=== PATIENT | female | born 1980 | race Caucasian/White ===

== ENCOUNTER 2017-07-18 06:33 | Day surgery (SDC) | payer OTHER ==
[2017-07-15 19:45] VITALS: BMI 30.1
[2017-07-18] MEDS ORDERED: EPINEPHrine/PF 1 MG/1 ML (1:1,000) AMPULE ONE (07:31)
[2017-07-18] MEDS ORDERED: BUPIVACAINE HCL/PF 2.5 MG/ML - 30 ML VIAL IJ ONE (07:31)
[2017-07-18] MEDS ORDERED: LIDOCAINE HCL 1%, 10 MG/ML (20ML VIAL) ONE (07:31)
[2017-07-18] MEDS ORDERED: SODIUM BICARBONATE 8.4% 50 MEQ/50 ML VIAL ONE ×2 (07:31→07:46)
[2017-07-18] MEDS ORDERED: ROCURONIUM BROMIDE 50 MG/5 ML VIAL ONE (07:37)
[2017-07-18] MEDS ORDERED: MIDAZOLAM HCL 2 MG/2 ML SINGLE DOSE VIAL ONE ×2 (07:37)
[2017-07-18] MEDS ORDERED: LIDOCAINE HCL/PF 2% SDV 5ML VIAL ONE (07:37)
[2017-07-18] MEDS ORDERED: PROPOFOL 20 ML ONE (07:37)
[2017-07-18] MEDS ORDERED: DEXAMETHASONE SOD PHOSPHATE 4 MG/1 ML VIAL ONE (07:38)
[2017-07-18] MEDS ORDERED: ceFAZolin SODIUM 1 GM VIAL ONE (07:38)
[2017-07-18] MEDS ORDERED: ONDANSETRON 4 MG/2 ML VIAL ONE ×2 (07:38→10:42)
[2017-07-18] MEDS ORDERED: BUPIVACAINE HCL/EPINEPHRINE/PF 30 ML VIAL IJ ONE (08:06)
[2017-07-18] MEDS ORDERED: BUPIVACAINE 0.25% /EPI 1:200,000 10 ML VIAL INF ONE (08:39)
[2017-07-18] MEDS ORDERED: TRIAMCINOLONE ACET 40MG/1ML VIAL NR ONE (09:28)
[2017-07-18] MEDS ORDERED: KETOROLAC TROMETHAMINE 30 MG/1 ML VIAL ONE (10:42)
[2017-07-18] MEDS ORDERED: GUM MASTIC/STORAX/MSAL/ALCOHOL 1 DRP DROPSBTL MC ONE (10:43)
[2017-07-18] MEDS ORDERED: oxyCODONE HCL 5 MG TABLET PO PRN (11:19)
[2017-07-18] MEDS ORDERED: ONDANSETRON 4 MG/2 ML VIAL IVPUSH PRN (11:19)
[2017-07-18] MEDS ORDERED: LACTATED RINGERS SOLUTION 1,000 ML IV SCH (11:30)
--- NOTE | 2017-07-18 11:31 | OP ---
Operative Note - Note: Operative Date: 07/18/17 Pre-Operative Diagnosis: Aquired chest wall deformity Operation: Left breast scotty flap revision. Right breast mastopexy. Fat grafting from abd/back, and flanks to bilateral breasts, abdominal scar revision Findings: asymmetry breasts s/p reconstruction Implants: none Post-Operative Diagnosis: Same as Pre-op Surgeon: Christoph Hudson [employer] Hand: Barb Boudreaux Anesthesiologist/BULK STATION AGENT: Jojo Stallworth Anesthesia: Local, MAC Specimens Removed: Left breast abdominal skin, and abdominal scar. right breast skin Estimated Blood Loss (mls): 20 Drains & Tubes with Location: none Operative Report Dictated: Yes
[2017-07-18] MEDS ORDERED: oxyCODONE HCL 5 MG TABLET ONE (13:40)
[2017-07-18 14:52] VITALS: BP 121/63; PULSE 76; TEMP 98
--- NOTE | 2017-07-22 12:50 | PATH ---
Surgical Pathology Report Patient Name: ROBERTO AMARO Med. Rec. #: [id number] /Age/Gender: 1980 (Age: 36) / F Account: [id number] Location: [facility] Taken: 07/18/2017 Received: 07/18/2017 Reported: 07/22/2017 Physicians: Christoph Herron M.D. Specimen(s) Received RIGHT BREAST SKIN Clinical History Malignant neoplasm of breast Final Diagnosis SKIN, RIGHT BREAST, MASTOPEXY: UNREMARKABLE SKIN. Electronically Signed Kerwin Velasquez M.D. Gross Description Received in formalin labeled "right breast skin," is an 11.5 x 3.4 cm bowling, elliptical, unoriented portion of skin excised to a depth of 1.1 cm. The epidermal surface is unremarkable. The underlying soft tissue displays unremarkable yellow fat. A contact center representative section is submitted in one cassette. 07/21/201707/21/2017
--- NOTE | 2017-08-05 19:37 | OP ---
DATE OF OPERATION: 07/18/2017 PREOPERATIVE DIAGNOSES: 1. Personal history of breast cancer. 2. Acquired absence of left breast and nipple. 3. Contour deformity of left breast. 4. Asymmetry of breasts due to cancer. POSTOPERATIVE DIAGNOSES: 1. Personal history of breast cancer. 2. Acquired absence of left breast and nipple. 3. Contour deformity of left breast. 4. Asymmetry of breasts due to cancer. PROCEDURE: 1. Revision of left breast reconstruction. 2. Right mastopexy. 3. Left nipple/areolar reconstruction. 4. Subcutaneous tissue transfer from abdomen and flanks to left breast. ATTENDING SURGEON: Christoph Hudson MD STUCCO WORKER: SCOTTY Miranda ANESTHESIA: General with LMA. ESTIMATED BLOOD LOSS: Less than 20 mL. SPECIMEN: Right breast skin and tissue to Pathology. DRAINS: None. COMPLICATIONS: None. CONDITION: Stable to recovery room, extubated. INDICATIONS: The patient is a 36-year-old female with a history of left breast cancer who has previously undergone a left skin-sparing mastectomy and immediate GASTON flap reconstruction. The patient now presents for secondary breast reconstruction including revision of the left breast flap and creation of a nipple/areolar complex. In addition, the patient requires a symmetrizing right mastopexy and transfer of subcutaneous tissue from the abdomen and flanks to the right breast superior pole. The risks, benefits and alternatives of the secondary reconstruction were discussed with the patient in detail and all questions were answered. The risks include but are not limited to bleeding, infection, pain, need for revision or further surgery, partial or complete flap loss, partial or complete skin loss, damage to surrounding structures including nerves, arteries, veins and tendons. The patient understands these risks and has elected to proceed with surgery. DESCRIPTION OF PROCEDURE: After proper identification and marking the patient in the preoperative holding area, the patient was transferred to the operating room and placed supine on the table where noninvasive anesthesia monitors were applied. Intravenous access was established. General anesthesia was administered and an LMA was inserted without difficulty. SCD boots were applied to bilateral lower extremities. Intravenous antibiotics were then given. The patient's bilateral breasts as well as abdomen and flanks were then prepped and draped in the usual sterile fashion. After a timeout was performed, stab incisions were made along the umbilicus and standard tumescent solution was infiltrated into the abdomen and bilateral flanks. Once this was given time to take effect, the 5-mm cannula was used to harvest lipoaspirate from the abdomen and bilateral flanks. This was collected into the VIOlife system and the lipoaspirate was then processed on the back table and the isolated adipocytes were loaded into 10 mL syringes in preparation for subcutaneous tissue transfer. The hypertrophic scar of the umbilicus was then excised and a layered closure of the umbilicus was performed using a 3-0 PDS in a buried deep dermal fashion followed by a 5-0 nylon in a simple running fashion. At this point, attention was turned towards the right breast, where the distance was noted to be too long; therefore, an elliptical excision pattern was drawn along the inferior pole. This was infiltrated with 1% lidocaine with 1:100,000 units of epinephrine. A total of 10 mL was used. A number 10 blade was used to make both limbs of the ellipse and the redundant inferior pole skin was removed just above the level of the breast fascia and passed off the field to Pathology. The right breast was then irrigated and hemostasis ensured. The right breast inframammary fold incision was closed in layers using a 3-0 PDS in a buried deep dermal fashion followed by a 3-0 Monocryl in a running subcuticular fashion. At this point, attention was turned towards the left breast. [place]-type excisions were drawn on both the medial and lateral borders of the skin paddle. These crescent-shaped incisions were incised and the redundant skin paddle was removed just below the level of the dermis. Once this was completed, attention was turned towards the nipple/areolar complex where a modified C-V flap was designed. All limbs of this were incised and the limbs of the nipple reconstruction were elevated with care taken to include adequate amount of subcutaneous fat. The donor limbs were then closed in layers using a 4-0 PDS in a buried deep dermal fashion followed by a 5-0 plain gut in a simple running fashion. The limbs were transposed and inset using a 5-0 plain gut in a simple interrupted fashion. The top of the nipple was then closed using a 5-0 plain gut in a simple running fashion. At this point, a 38-mm cookie cutter was centered around the nipple/areolar complex. This was then incised in a partial-thickness fashion and a 5-0 fast-absorbing plain gut was used in a simple running fashion in order to reapproximate the epidermal edges. At this point, the isolated adipocytes were layered in a modified Mary technique to the upper pole of the left breast. A total of 120 mL was injected along the superomedial and superolateral quadrants. There was noted to be a significant improvement in the chest wall deformity and once this was completed, the medial and lateral breast incisions were closed in layers using a 3-0 PDS in a buried deep dermal fashion followed by a 3-0 Monocryl in a running subcuticular fashion. Mastisol and Steri-Strips were applied to all incision lines and a nipple protector dressing was placed. At this point, the patient was placed into a soft surgical bra as well as an abdominal binder and then slowly awakened and extubated without incident and transferred to the recovery room in stable condition. CHRISTOPH HUDSON M.D. [id number]
== END 2017-07-18 14:54 | disposition home or self-care (01) ==
LOC: FASU 06:33
PROVIDERS: ATTEND Plastic Surgery
PROC: 0HST0ZZ Reposition Right Breast, Open Approach (ICD-10-PCS; 2017-07-18)
PROC: 0HSWXZZ Reposition Right Nipple, External Approach (ICD-10-PCS; 2017-07-18)
PROC: 0HQ7XZZ Repair Abdomen Skin, External Approach (ICD-10-PCS; 2017-07-18)
PROC: 0HB7XZZ Excision of Abdomen Skin, External Approach (ICD-10-PCS; 2017-07-18)
PROC: 0HRU07Z Replacement of Left Breast with Autologous Tissue Substitute, Open Approach (ICD-10-PCS; principal; 2017-07-18 08:08)
PROC: 0KBL0ZZ Excision of Left Abdomen Muscle, Open Approach (ICD-10-PCS; 2017-07-18 08:08)
PROC: 0HUX07Z Supplement Left Nipple with Autologous Tissue Substitute, Open Approach (ICD-10-PCS; 2017-07-18 08:08)
DX: Z85.3 Personal history of malignant neoplasm of breast (principal); Z90.12 Acquired absence of left breast and nipple; N65.0 Deformity of reconstructed breast; N65.1 Disproportion of reconstructed breast
CPT/HCPCS: 84703; 88302-TC; 94760

== ENCOUNTER 2017-10-31 05:54 | Day surgery (SDC) | payer BC, OTHER ==
[2017-10-24 10:38] VITALS: BMI 30.9
[2017-10-31] MEDS ORDERED: ROCURONIUM BROMIDE 50 MG/5 ML VIAL ONE ×2 (06:47→09:30)
[2017-10-31] MEDS ORDERED: LIDOCAINE HCL/PF 2% SDV 5ML VIAL ONE (06:49)
[2017-10-31] MEDS ORDERED: ONDANSETRON 4 MG/2 ML VIAL IVPUSH PRN ×2 (06:53→11:44)
[2017-10-31] MEDS ORDERED: oxyCODONE HCL 5 MG TABLET PO PRN ×2 (06:53)
[2017-10-31] MEDS ORDERED: LACTATED RINGERS SOLUTION 1,000 ML IV SCH ×2 (07:00→11:45)
[2017-10-31] MEDS ORDERED: LIDOCAINE HCL 1%, 10 MG/ML (20ML VIAL) ONE (07:59)
[2017-10-31] MEDS ORDERED: SODIUM BICARBONATE 8.4% 50 MEQ/50 ML VIAL ONE (07:59)
[2017-10-31] MEDS ORDERED: EPINEPHrine/PF 1 MG/1 ML (1:1,000) AMPULE ONE (07:59)
[2017-10-31] MEDS ORDERED: MIDAZOLAM HCL 2 MG/2 ML SINGLE DOSE VIAL ONE (08:03)
[2017-10-31] MEDS ORDERED: PROPOFOL 20 ML ONE ×4 (08:03→11:06)
[2017-10-31] MEDS ORDERED: LIDOCAINE 1%/EPI 1:100000 (20 ML MULTI DOSE VIAL) ONE ×2 (08:19→09:36)
[2017-10-31] MEDS ORDERED: ONDANSETRON 4 MG/2 ML VIAL ONE ×3 (08:20→11:02)
[2017-10-31] MEDS ORDERED: KETOROLAC TROMETHAMINE 30 MG/1 ML VIAL ONE (08:20)
[2017-10-31] MEDS ORDERED: DEXAMETHASONE SOD PHOSPHATE 4 MG/1 ML VIAL ONE (08:21)
[2017-10-31] MEDS ORDERED: ceFAZolin SODIUM 1 GM VIAL ONE (08:26)
[2017-10-31] MEDS ORDERED: BACITRACIN 15 GM TUBE TOPICAL OINTMENT ONE (09:16)
[2017-10-31] MEDS ORDERED: LIDOCAINE 1%/EPI 1:100000 (50 ML MULTI DOSE VIAL) INF ONE ×2 (10:29)
[2017-10-31] MEDS ORDERED: BACITRACIN 15 GM TUBE TOPICAL OINTMENT TP ONE (10:36)
[2017-10-31] MEDS ORDERED: GLYCOPYRROLATE 0.2 MG/1 ML VIAL ONE (10:55)
[2017-10-31] MEDS ORDERED: NEOSTIGMINE METHYLSULFATE 0.5 MG/ML - 10 ML MDV ONE (10:55)
[2017-10-31] MEDS ORDERED: METOPROLOL TARTRATE 5 MG/5 ML VIAL ONE (10:55)
[2017-10-31] MEDS ORDERED: ACETAMINOPHEN 325 MG TABLET (FP) PO PRN (11:44)
[2017-10-31 13:54] VITALS: PULSE 84; TEMP 98.4
[2017-10-31] MEDS ORDERED: oxyCODONE HCL 5 MG TABLET ONE (13:55)
[2017-10-31 15:41] VITALS: BP 135/84
--- NOTE | 2017-11-05 15:31 | PATH ---
Surgical Pathology Report Patient Name: ROBERTO AMARO [facility] [place]. Rec. #: [id number] /Age/Gender: 1980 (Age: 37) / F Account: [id number] Location: [facility] Taken: 10/31/2017 Received: 10/31/2017 Reported: 11/05/2017 Physicians: Christoph Herron M.D. Specimen(s) Received LEFT BREAST SCAR Clinical History History of left breast cancer Final Diagnosis SCAR, LEFT BREAST, EXCISION: SKIN WITH SCAR. Electronically Signed Fannie Arguello M.D. Gross Description Received in formalin labeled "left breast scar," is a 10.0 x 1.8 cm bowling-brown, elliptical, unoriented portion of skin excised to a depth of 0.9 cm. The epidermal surface displays a healed scar. Also received within the same container are two unoriented portions of fibroadipose tissue measuring 1.5 and 2.5 cm in greatest dimension. Sectioning of the larger portion of fibroadipose tissue displays a petersen metallic staple within the tissue. Rating Specialist sections are submitted in one cassette. /11/03/2017 [facility]11/03/2017
--- NOTE | 2017-11-08 14:19 | OP ---
DATE OF OPERATION: 10/31/2017 PREOPERATIVE DIAGNOSES: 1. Personal history of breast cancer. 2. Acquired absence of left breast and nipple. 3. Deformity of left reconstructed breast. 4. Asymmetry of reconstructed breast and absentee-shawnee breast. 5. Hypertrophic scar of abdomen. POSTOPERATIVE DIAGNOSES: 1. Personal history of breast cancer. 2. Acquired absence of left breast and nipple. 3. Deformity of left reconstructed breast. 4. Asymmetry of reconstructed breast and absentee-shawnee breast. 5. Hypertrophic scar of abdomen. PROCEDURES: 1. Revision of left breast reconstruction with lowering of deep inferior epigastric housing quality standard inspector microvascular free flap. 2. Subcutaneous tissue transfer from bilateral flanks to left breast. 3. Abdominal scar revision (10 cm in length). ATTENDING SURGEON: Christoph Hudson MD ANESTHESIA: General endotracheal. ESTIMATED BLOOD LOSS: 20 mL. SPECIMEN: Abdominal scar to Pathology. DRAINS: None. COMPLICATIONS: None. CONDITION: Stable to recovery room, extubated. INDICATIONS: The patient is a 37-year-old female with a history of left breast cancer who previously underwent a left mastectomy and tissue vacuum evaporation operator reconstruction. 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 The patient therefore underwent delayed autologous reconstruction using a deep inferior epigastric housing quality standard inspector flap. She has undergone nipple-areolar reconstruction and now presents for further secondary breast reconstruction. The risks, benefits and alternatives of the secondary breast reconstruction were discussed with the patient in detail and all questions were answered. The risks include, but are not limited to, bleeding, infection, pain, need for revision or further surgery, residual breast asymmetry, damage to neighboring structures, including nerves, arteries, veins and tendons. The patient understands these risks and has elected to proceed with surgery. PROCEDURE: After proper identification and marking the patient in the preoperative holding area, the patient was transported to the operating room and placed supine on the table. While noninvasive anesthesia monitors were applied, intravenous access was established. General anesthesia was administered and an LMA was inserted without difficulty. SCD boots were applied to bilateral extremities. Intravenous antibiotics were then given. The patient's bilateral breasts as well as abdomen and flanks were then prepped and draped in the usual sterile fashion. Local anesthesia was then infiltrated along the planned incisions of the abdomen and left breast. A local anesthetic solution consisting of 0.25% Marcaine with 1:200,000 units of epinephrine was used. A total of 20 mL were used. Attention was first turned towards the abdomen where a No. 15 blade was used to incise both limbs of the ellipse of the central portion of the lower abdominal scar. This central portion was noted to be hypertrophic with areas of fat necrosis. Once the skin was incised, electrocautery was used to remove the hypertrophic scar with the underlying fat necrosis and this was passed off the field to Pathology. The superior abdominal skin flap was then raised until adequate advancement was achieved. Once this was completed, Elizabeth layer was reapproximated using a 2-0 Vicryl in an interrupted buried fashion. The infiltration cannula was then brought on to the field and standard tumescent solution was infiltrated into the abdomen and bilateral flanks. Once this was given time to take effect, a 5-mm cannula was loaded and this was hooked up to the REVOLVE system which was sterilely draped. The M_SOLUTION power-assisted liposuction system with a 5-mm cannula was then used to harvest subcutaneous tissue from the abdomen and bilateral flanks. This was collected into the REVOLVE system. Once an adequate amount of lipoaspirate had been harvested, the abdominal closure was completed using a 3-0 PDS in a buried deep dermal fashion followed by a 3-0 Monocryl in a running subcuticular fashion. Prineo tape was applied to the lower abdominal incision line. The lipoaspirate was then processed sterilely and the isolated adipocytes were loaded into 10-mL syringes in preparation for subcutaneous tissue transfer. Attention at this point was turned towards the left breast. The amount of redundant skin flap laterally had been marked preoperatively for excision in a crescent fashion. Both limbs of this crescent were incised and the incision along the skin paddle was continued inferiorly. The redundant skin paddle was removed in a full-thickness fashion using electrocautery. At this point, the lateral chest wall skin flap was raised down to the level of the chest wall laterally and inferiorly. The inferior portion of the chest wall flap was then raised down to the level of the new inframammary fold. Attention at this point was turned towards mobilization of the autologous flap. Electrocautery was used to elevate the flap off of the chest wall and this was continued until adequate mobilization was achieved. The flap was then advanced inferiorly down to the level of the new inframammary fold and this was secured using a 3-0 Vicryl suture in an interrupted buried fashion. Once the flap had been moved into a new position, the left breast closure was completed in layers using a 3-0 PDS in a buried deep dermal fashion followed by a 3-0 Monocryl in a running subcuticular fashion. At this point, attention was turned towards the subcutaneous tissue transfer. Stab incisions were made along the areola. Using a modified Mary technique, the isolated adipocytes were layered into the superior medial central and superior lateral poles of the breast. The adipocytes were then layered along the inferior pole of the breast as well. A total of 150 mL of adipocytes were injected. There was noted to be a significant improvement in the left breast shape and once this was completed the stab access incisions were closed with a 5-0 plain gut in a simple interrupted fashion. Prineo tape was applied to the left breast closure line and at this point the patient was placed into a soft surgical bra with care taken to ensure adequate padding with fluffs and ABD pads. The patient was also placed into abdominal binder and at this point the patient was slowly awakened and extubated without incident and was transported to the recovery room in stable condition. CHRISTOPH HUDSON M.D. [id number]
== END 2017-10-31 15:25 | disposition home or self-care (01) ==
LOC: FASU 05:54
PROVIDERS: ATTEND Plastic Surgery
PROC: 0HRU37Z Replacement of Left Breast with Autologous Tissue Substitute, Percutaneous Approach (ICD-10-PCS; 2017-10-31)
PROC: 0JD83ZZ Extraction of Abdomen Subcutaneous Tissue and Fascia, Percutaneous Approach (ICD-10-PCS; principal; 2017-10-31 08:29)
PROC: 0HX7XZZ Transfer Abdomen Skin, External Approach (ICD-10-PCS; 2017-10-31 08:29)
DX: Z85.3 Personal history of malignant neoplasm of breast (principal); Z90.12 Acquired absence of left breast and nipple; N65.0 Deformity of reconstructed breast; N65.1 Disproportion of reconstructed breast; L91.0 Hypertrophic scar
CPT/HCPCS: 84703; 88304-TC; 94010; 94760